=== PATIENT | female | born 1970 | race Caucasian/White ===

== ENCOUNTER → 2024-01-06 10:56 | Outpatient (REF) | payer OTHER, SELFPAY ==
[2024-01-06 15:02] LABS: Mumps Virus IgG Positive; Rubeola (Measles) IgG Positive; Varicella Zoster IgG (VZV) Positive
[2024-01-06 21:17] LABS: Rubella Positive
[2024-01-08 05:55] LABS: Quantiferon Mitogen minus NIL 9.93 IU/mL; Quantiferon NIL 0.07 IU/mL; Quantiferon Plus TB1 minus NIL 0.05 IU/mL (<=0.34); Quantiferon Plus TB2 minus NIL 0.03 IU/mL (<=0.34); Quantiferon TB Gold Plus Negative (Negative)
== END ==
LOC: OHS 10:56
PROVIDERS: ATTENDING PHYSICIAN Nurse Practitioner Family
DX: Z23 Encounter for immunization (principal)
CPT/HCPCS: 36415; 86480; 86735; 86762; 86765; 86787

== ENCOUNTER 2024-10-06 07:31 | Emergency (ER) | payer BC, SELFPAY ==
[2024-10-06] VITALS (8 sets, daily range): BP systolic 115–135; BP diastolic 69–91; BMI 33.6
--- NOTE | 2024-10-06 08:10 | ED.GENMED ---
History of Present Illness
General
Chief Complaint: Abdominal Pain
Source: patient
Exam Limitations: none
Time Seen by Provider: 10/06/24 07:59
Nursing documentation reviewed up to this point in time: agreed with
History of Present Illness
History of Present Illness:
Patient is a 53-year-old female past medical history of Crohn's disease presents to the ER for evaluation., Cholecystectomy, cardiac stent gastric sleeve presents to the ER for evaluation. She started this morning with right-sided abdominal pain
around 6:45 and it has progressed and continued. She reports pain started in the right lower quadrant but now radiates all throughout her entire abdomen. She denies any nausea vomiting fever chills. She denies any constipation. She reports her
stool is always in consistency and appearance is brown chocolate pudding and this has been her normal stoo. no changes.
her GI specialist is at [facility].
Phy Exam
General Physical Exam
General Presentation: no apparent distress
General age: appears stated age
General Skin: warm and dry
General Habitus: normal
General Mental: alert
General Hydration: appears well hydrated
Cardiovascular Exam
Cardiovascular Exam: regular rate/rhythm, no murmur and normal peripheral pulses
Pulmonary Exam
Pulmonary Exam: lungs clear and no respiratory distress
Gastrointestinal Exam
Gastrointestinal Exam: soft and other (non specific abd tenderness no guarding )
Neurological Exam
Neurological Exam: alert and oriented x3
Course
Orders/Labs/Results
Orders:
Orders
10/06/24 07:39
EKG [Electrocardiogram (*1)] Urgent
Reason for Study: Chest Pain
10/06/24 07:40
EKG- Treatment ONCE
10/06/24 08:15
CT Abd/pel W Iv And Oral Contr Urgent
Comment:
Reason For Exam: right sided abd pain
Iohexol [Omnipaque] See Protocol PO NOW STA
10/06/24 08:40
Troponin I Urgent
10/06/24 08:43
Complete Blood Count/With Diff Urgent
Comprehensive Metabolic Panel Urgent
Lipase Urgent
10/06/24 09:29
Ketorolac [Toradol] 15 mg IV NOW STA
10/06/24 12:58
Urinalysis Reflex To Culture Urgent
Date Specimen was Collected: 10/06/24
Time Specimen was Collected: 12:56
Abnormal Lab Results
10/06/24 10/06/24
08:43 12:58
MCHC 32.7 L g/dL
(33.0-37.0)
Urine Glucose 4+ A
(Negative)
10/06/24 08:43
10/06/24 08:43
Vital Signs
Initial and Last Documented VS:
Initial Vital Signs
Temp Pulse Resp BP Pulse Ox
98.1 F 68 16 115/81 99
10/06/24 07:38 10/06/24 07:38 10/06/24 07:38 10/06/24 07:38 10/06/24 07:38
Last Documented Vital Signs
Temp Pulse Resp BP Pulse Ox
98.1 F 79 15 117/71 95
10/06/24 07:38 10/06/24 12:45 10/06/24 12:45 10/06/24 11:00 10/06/24 12:45
Customer Service Representative consulted with Physician
Customer Service Representative consulted with physician?: Yes (suzie )
MDM/Problems Addressed
MDM/Problems Addressed:
As discussed patient has a history of Crohn's and started today with abdominal pain. She describes right lower quadrant pain radiating to right upper quadrant and all throughout the abdomen and slight chest pain. She denies any associated
shortness of breath. She denies any constipation diarrhea nausea vomiting. She is on omeprazole does not feel like this is reflux/gastritis.
she presents awake alert no acute distress she has previous cholecystectomy. She is afebrile her white count is normal her labs unremarkable and CAT scan is negative. She received Toradol and is feeling better. Will DC with outpatient mild left
family doctor to return if any worsening of symptoms
Chronic conditions affecting care:
Crohn's previous gastric sleeve surgery
*Radiology
Radiology exam reviewed: radiology read reviewed
*Pulse Oximetry
SaO2: 99
Oxygen Mode of Delivery: Room air
Patient hypoxic: no
*EKG
Interpreted by ED Provider?: Yes
Interpretation: normal
Heart Rate: 66
Rate: normal
Rhythm: sinus
*Critical Care Note
Total Time (30-74mins, 75-104mins- exclusive of procedures): Not Applicable
ED Attending Note
-
Portions of this chart may have been created with voice recognition software.� Occasional wrong word or��sound alike� substitutions may have occurred due to the inherent limitations of voice recognition software.
Discharge Plan
Departure
Patient Disposition: Home (Routine Discharge)
Date of Disposition: 10/06/24
Time of Disposition: 14:14
Patient with high blood pressure during this ER visit?: No
Condition: Fair
Covid-19: Not Applicable
Discharge Problem:
Abdominal pain
Instructions: Abdominal Pain
Referrals:
Truong Perez MD [Family Provider, Family Practice]
Activity Restrictions/Additional Instructions:
As discussed follow-up with your family doctor the next several days for reevaluation. Return if any worsening of symptoms. In addition please follow-up with your GI specialist as soon as possible call to make an appointment.
Interventions
Interventions:
*Risk Screen - Suicide Last Done: 10/06/24 07:38
*General Assessment Last Done: 10/06/24 07:38
*ED COVID-19 Vaccine History Last Done: 10/06/24 07:38
[id number] Assessment Last Done: 10/06/24 09:30
Discharge Date and Time
Print Language: BENGALI
[2024-10-06] MEDS: OMNIPAQUE 50 ML PO (08:45)
[2024-10-06 08:58] LABS: Hematocrit 38.8 % (37.0-47.0); Hemoglobin 12.7 g/dL (12.0-16.0); Mean Corp Hgb Conc. 32.7 g/dL (33.0-37.0); Mean Corpuscular Volume 86.2 fL (81.0-99.0); Nucleated Red Blood Cells % 0 %; Platelet Count 232 10^3/uL (130-400); Red Cell Dist. Width 13.2 % (11.5-14.5)
[2024-10-06 09:10] LABS: ALT (SGPT) 28 U/L (0-35); AST (SGOT) 19 U/L (14-36); Albumin 4.3 g/dl (3.5-5.0); Alkaline Phosphatase 79 U/L (38-126); Blood Urea Nitrogen 16 mg/dl (7-17); Calcium 9.8 mg/dl (8.4-10.2); Carbon Dioxide 30 mmol/L (22-30); Chloride 105 mmol/L (98-107); Estimated Creatinine Clearance 89 ml/min; Glucose 91 mg/dl (70-99); Lipase 121 U/L (23-300); Potassium 4.3 mmol/L (3.5-5.1); Sodium 139 mmol/L (135-145); Total Protein 6.8 g/dl (6.3-8.2); eGFR > 60.00
[2024-10-06] MEDS: TORADOL 15 MG IV (10:00)
[2024-10-06 13:54] LABS: Troponin I < 0.012 ng/ml
[2024-10-06 13:56] LABS: Urine Character Clear (Clear)
== END 2024-10-06 14:25 | disposition home or self-care (01) ==
LOC: EMR 07:31
PROVIDERS: Nurse Practitioner; EMERGENCY PHYSICIAN Emergency Medicine; FAMILY PHYSICIAN Family Medicine
DX: R10.31 Right lower quadrant pain (principal); K50.90 Crohn's disease, unspecified, without complications; Z98.84 Bariatric surgery status
CPT/HCPCS: 96374; 99284; 74177; 80053; 81003; 83690; 84484; 85025; 93005; Q9967